=== PATIENT | male | born 1965 | race Two or more races ===

== ENCOUNTER 2017-01-30 14:38 | Emergency (ER) | payer MEDICAID ==
[~2017-01-30] VITALS: Ht 182.9 cm; Wt 108.0 kg
[2017-01-30] MEDS ORDERED: Methocarbamol 750mg tab ORAL ONE (15:30)
[2017-01-30] MEDS ORDERED: ROBAXIN-750750 MG PO (15:51)
[2017-01-30] MEDS ORDERED: IBUPROFEN600 MG ORAL (15:51)
--- NOTE | 2017-01-30 15:56 | Diagnostic Imaging Report ---
Indication: Pain Findings: 3 views of the right shoulder were obtained. No acute fractures, malalignment, erosions or periostitis are identified. Osteopenia noted.. Soft tissues are unremarkable. Impression: No acute injury
[2017-01-30 16:10] VITALS: BP 131/90
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
== END 2017-01-30 16:31 | disposition home or self-care (01) ==
LOC: EMR 15:22
DX: S46.911A Strain of unspecified muscle, fascia and tendon at shoulder and upper arm level, right arm, initial encounter (principal); W05.0XXA Fall from non-moving wheelchair, initial encounter; Y92.89 Other specified places as the place of occurrence of the external cause; G82.20 Paraplegia, unspecified
CPT/HCPCS: 99284